=== PATIENT | male | born 1980 | race African-American/Black ===

== ENCOUNTER 2021-09-17 20:05 | Emergency (ER) | payer SELFPAY ==
[2021-09-17 20:11] VITALS: BP 157/79; PULSE 102; O2SAT 99
[2021-09-17 20:26] VITALS: BP 146/89; PULSE 98; RESP 16; TEMP 36.6; O2SAT 98; BMI 25.1
[2021-09-17 20:53] LABS: COVID-19 Test Negative (Negative)
--- NOTE | 2021-09-17 21:19 | ED_ITS ---
HPI - General Adult General Chief complaint: General Medical Stated complaint: med refill Time Seen by Provider: 09/17/21 20:42 History of Present Illness HPI narrative: Patient's main complaint is that it is cold and he has no where to sleep any just came here from another town and he is homeless next complaint is he wants to refill the clonazepam prescription but he is not sure of the dosing or why he was taking, he is not suicidal he is not anxious is not hearing voices He says he can contact the doctor who prescribed his original prescription Related Data Allergies Allergy/AdvReac Type Severity Reaction Status Date / Time No Known Allergies Allergy Verified 09/17/21 20:36 Review of Systems Verdana 4l Review of Systems: Verdana 4d Complaint is feeling cold Verdana 4d Negatives are no fever no chills no injuries no chest pain no abdominal pain no vomiting Verdana 4d Yes all other systems are reviewed and are negative [facility] Past Medical History Source: nursing notes reviewed Medical History (Updated 09/17/21 @ 21:31 by OCTAVIO Buck) Anxiety Social History Social History Advance Directives: No Physical Exam Verdana 4l Vital Signs: Verdana 4d Verdana 4d Vital Signs: Verdana 4d Verdana 4Bd Last Vital Signs Verdana 4d [employer] New 4d [employer] New 4d Temp 97.8 F 09/17/21 20:26 [employer] New 4d Pulse 98 09/17/21 20:26 [employer] New 4d Resp 16 09/17/21 20:26 BP 146/89 H 09/17/21 20:26 Pulse Ox 98 09/17/21 20:26 BMI result Body Mass Index 25.1 General appearance is no acute distress, he is A&O x3, cooperative well- appearing Head is normocephalic atraumatic Neck is supple Respiratory no distress Extremities full range of motion x4 Course Course Course Narrative: I informed the patient that his clonazepam refill needs to come from his doctor as we have no record of the prescription next with the care team saw the patient and got him about sure to spend the night in a city waiting room and gave him information about finding group home tomorrow during business hours and he was discharged with a safe place to spend the night Medical Decision Making Lab Data Labs: Lab Results 09/17/21 Range/Units 20:35 COVID-19 ([facility]) Negative (Negative) COVID-19 Clin Com See Note Discharge Plan Discharge Clinical Impression: Encounter for medication refill, Homelessness Patient Disposition: Home, Self-Care Additional Instructions: I could not do a refill as we have no record of it in our computer so you will need to refill your clonazepam with your prescriber We found a place we you could spend the night and hopefully the geriatric social worker gave you information we you could find better shoulder for tomorrow Return to the ER any time any worse condition or any concerns
--- NOTE | 2021-09-17 21:52 | MHC.CARE ---
CARE team consult received for 40 year old male who presented to ED seeking long-term from the harsh and freezing temperatures. Pt is homeless and not from this area, thus does not have any supports or resources. This sign writer hand provided pt with information for local shelters and [facility] program in [place]. [employer] is being requested to transport him to the [employer] lobby for a safe place to stay tonight.
== END 2021-09-17 21:55 | disposition home or self-care (01) ==
PROVIDERS: Emergency Provider Internal Medicine
DX: Z76.0 Encounter for issue of repeat prescription (principal); Z72.89 Other problems related to lifestyle; Z59.02 Unsheltered homelessness
CPT/HCPCS: 87635; 99283